=== PATIENT | male | born 1980 | race Asian ===

== ENCOUNTER 2025-01-05 00:36 | Emergency (ER) | payer MEDICAID, OTHER ==
[~2025-01-05] VITALS: Ht 170.2 cm; Wt 63.5 kg
[2025-01-05 01:11] VITALS: PULSE 87; RESP 18; TEMP 98.5; O2SAT 96
[2025-01-05 01:50] LABS: Basophils # (auto) 0.1 10 ^3/uL (0-0.2); Eosinophils # (auto) 0 10 ^3/uL (0-0.8); Eosinophils % (auto) 0.3 % (0.0-7.0); Hemoglobin 14.2 g/dL (13.5-17.5); Lymphocytes # (auto) 2.5 10 ^3/uL (0.4-5.4); Monocytes # (auto) 0.7 10 ^3/uL (0-1.3); White Blood Cell 8.3 10^3/uL (4.4-10.8)
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
[2025-01-05 01:57] LABS: Basophils % (auto) 0.8 % (0.0-2.0); Hematocrit 41.8 % (41.0-53.0); Lymphocytes % (auto) 29.8 % (10.0-50.0); Mean Corpuscular Hemoglobin 34.6 pg (28.0-32.0); Mean Corpuscular Volume 101.6 fL (80.0-100.0); Monocytes % (auto) 8.1 % (0.0-12.0); Neutrophils # (auto) 5.1 10 ^3/uL (1.6-8.6); Nucleated Red Blood Cells % 0.1 %; Platelet Count (auto) 247 10^3/uL (140-450); Red Blood Cells 4.12 10^6/uL (4.5-5.90); Red Cell Distribution Width 14.5 % (11.8-14.3)
[2025-01-05 02:06] LABS: Alanine Aminotransferase 43 U/L (7-40); Albumin 4.9 g/dL (3.2-4.8); Alkaline Phosphatase 70 U/L (46-116); Anion Gap 8 (5-15); Aspartate Aminotransferase 50 U/L (13-40); BUN/Creatinine Ratio 11.1 (10.0-20.0); Bilirubin, Total 0.4 mg/dL (0.2-1.0); Blood Urea Nitrogen 11 mg/dL (9-23); Calcium 9.7 mg/dL (8.7-10.4); Carbon Dioxide 28 mmol/L (20-31); Chloride 107 mmol/L (98-107); Glucose 109 mg/dL (74-106); Potassium 3.8 mmol/L (3.5-5.1); Sodium 143 mmol/L (136-145); Total Protein 7.6 g/dL (5.7-8.2)
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
[2025-01-05 05:00] VITALS: BP 103/60; PULSE 88; RESP 93; O2SAT 95
--- NOTE | 2025-01-05 07:51 | ED.PDOC ---
Departure 1 Departure Time of Disposition: 07:51 (Patient has cleared and we will discharge patient home.) Impression: Primary Impression: Dehydration Additional Impressions: ETOH abuse Closed head injury Qualified Codes: S09.90XA - Unspecified injury of head, initial encounter Shoulder contusion Qualified Codes: S40.011A - Contusion of right shoulder, initial encounter Disposition: 01 HOME / SELF CARE / HOMELESS Condition: Stable Discharged With: Self NOLVIA AGUILAR MD January 05, 2025 07:51
== END 2025-01-05 08:10 | disposition home or self-care (01) ==
LOC: EDBD 00:36 → ER 00:36
DX: S40.011A Contusion of right shoulder, initial encounter (principal); S09.90XA Unspecified injury of head, initial encounter; E86.0 Dehydration; F10.10 Alcohol abuse, uncomplicated; F19.90 Other psychoactive substance use, unspecified, uncomplicated; Z59.00 Homelessness unspecified; W21.19XA Struck by other bat, racquet or club, initial encounter; Y93.89 Activity, other specified; Y92.89 Other specified places as the place of occurrence of the external cause; Y99.8 Other external cause status; Y90.9 Presence of alcohol in blood, level not specified
CPT/HCPCS: 36415; 70450; 73200; 80053; 80320; 85025

== ENCOUNTER 2025-01-05 17:31 | Emergency (ER) | payer MEDICAID ==
[~2025-01-05] VITALS: Ht 162.6 cm; Wt 68.1 kg
[2025-01-05] MEDS ORDERED: SODIUM CHLORIDE 0.9% 2,000 ML IV ONE (17:45)
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
[2025-01-05 18:49] LABS: Basophils # (auto) 0 10 ^3/uL (0-0.2); Neutrophils # (auto) 2.9 10 ^3/uL (1.6-8.6); Red Cell Distribution Width 14.2 % (11.8-14.3); White Blood Cell 5.5 10^3/uL (4.4-10.8)
[2025-01-05 18:51] LABS: Basophils % (auto) 0.8 % (0.0-2.0); Eosinophils # (auto) 0 10 ^3/uL (0-0.8); Eosinophils % (auto) 0.7 % (0.0-7.0); Hematocrit 42.3 % (41.0-53.0); Hemoglobin 14.5 g/dL (13.5-17.5); Lymphocytes % (auto) 36.2 % (10.0-50.0); Mean Corpuscular Hemoglobin 34.7 pg (28.0-32.0); Mean Corpuscular Hgb Conc. 34.3 g/dL (32.0-36.0); Mean Corpuscular Volume 101.1 fL (80.0-100.0); Monocytes # (auto) 0.5 10 ^3/uL (0-1.3); Monocytes % (auto) 9.7 % (0.0-12.0); Neutrophils % (auto) 52.6 % (37.0-80.0); Platelet Count (auto) 239 10^3/uL (140-450); Red Blood Cells 4.18 10^6/uL (4.5-5.90)
[2025-01-05 18:59] LABS: Potassium 3.9 mmol/L (3.5-5.1); Sodium 145 mmol/L (136-145)
[2025-01-05 19:00] LABS: Anion Gap 11 (5-15); Carbon Dioxide 24 mmol/L (20-31)
[2025-01-05 19:05] LABS: BUN/Creatinine Ratio 11.7 (10.0-20.0); Blood Urea Nitrogen 11 mg/dL (9-23)
[2025-01-05 19:20] LABS: Blood Alcohol 300.6 mg/dL (<10); Chloride 110 mmol/L (98-107); Glucose 106 mg/dL (74-106)
[2025-01-05 20:33] VITALS: BP 101/66; PULSE 89; RESP 16; TEMP 98.1; O2SAT 94
== END 2025-01-06 01:40 | disposition home or self-care (01) ==
LOC: EDBD 17:31 → ER 17:33
DX: F10.129 Alcohol abuse with intoxication, unspecified (principal); F19.90 Other psychoactive substance use, unspecified, uncomplicated; Y90.8 Blood alcohol level of 240 mg/100 ml or more
CPT/HCPCS: 36415; 80048; 80320; 85025